=== PATIENT | female | born 1945 | race Caucasian/White ===

== ENCOUNTER → 2022-06-19 17:29 | Outpatient (CLI) | payer MEDICARE, MEDICAID, SELFPAY ==
[2022-06-19 18:55] LABS: COVID19 -Nasal RAPID Negative (Negative)
== END ==
PROVIDERS: Referring Provider Physician Assistant Surgical; Visit Provider Physician Assistant Surgical
DX: Z20.822 Contact with and (suspected) exposure to COVID-19 (principal)
CPT/HCPCS: 87635; C9803

== ENCOUNTER 2022-06-27 11:32 | Emergency (ER) | payer MEDICARE, MEDICAID, SELFPAY ==
[2022-06-27] VITALS (23 sets, daily range): BP systolic 120–182; BP diastolic 59–84; PULSE 76–96; RESP 16–18; TEMP 36.3–37.1; O2SAT 93–98; BMI 24.0
--- NOTE | 2022-06-27 11:34 | DI.RAD.S_ITS ---
PROCEDURE: XR ABDOMEN MIN 2V INDICATIONS: pain, vomiting, trouble with ostomy TECHNIQUE: 2 views of the abdomen were acquired. COMPARISON: None. FINDINGS: Surgical changes and devices: Right femoral fixation. Bowel: No pneumoperitoneum. The bowel gas pattern demonstrates scattered mildly dilated fluid-filled loops of small bowel. Soft tissues: No masses; visualized solid organ contours appear normal in size. No suspicious abdominal calcifications. Bones: No suspicious bony abnormalities. IMPRESSION: Mildly dilated fluid-filled loops of small bowel suggestive ileus versus developing early partial small bowel obstruction. Dictated by: Francia Stevens M.D. on 06/27/2022 at 12:39 Approved by: Francia Stevens M.D. on 06/27/2022 at 12:40
--- NOTE | 2022-06-27 12:30 | ED.ABDPAIN ---
HPI - Abdominal Pain General Chief Complaint: Abdominal Pain Stated Complaint: Back pain and vomiting Time Seen by Provider: 06/27/22 11:33 Source: patient and EMS Mode of arrival: EMS History of Present Illness HPI narrative: 77-year-old female with prior TIA, dementia, hard of hearing with prior cystostomy presents by EMS for evaluation of accidental removal of cystostomy and episodes of abdominal pain with radiation to the back and vomiting. The patient is a terrible historian and has very little to contribute but states she is currently not having any pain whether it be her abdomen or her back. She does not know who manages her cystostomy but there is report of a planned revision. Records obtained from outside facility. Patient had suffered a hip fracture in September and also was found to have acute cholecystitis but was thought to be too weak to undergo a secondary surgery at that time. She had cholecystostomy tube placement and 8 days of antibiotics. Outside note reports a recent CT abscessogram that was relatively limited. Related Data Allergies Allergy/AdvReac Type Severity Reaction Status Date / Time No Known Drug Allergies Allergy Verified 06/27/22 11:49 Review of Systems Review of Systems Narrative: GENERAL: Denies chills, fatigue, malaise, fever, sweats. HEENT: Denies sinus pain, ear pain, sore throat, difficulty swallowing, dizziness. RESPIRATORY: Denies dyspnea, cough, wheezing, hemoptysis, sputum. CARDIOVASCULAR: Denies chest pain, palpitations, orthopnea, edema, GASTROINTESTINAL: See HPI : Denies dysuria, frequency, incontinence, hematuria, urinary retention. MUSCULOSKELETAL: denies weakness, joint pain, or bony pain SKIN: Denies rash, skin lesions, or other NEUROLOGIC: Denies weakness, headache, numbness, change in speech, confusion, seizures, incoordination. PSYCHIATRIC: No concerning psychosocial issues. 12 point review of systems is negative except for those stated above Exam Narrative Exam Narrative: GENERAL: [77] year old patient appears stated age. Well-developed patient, in mild distress. Confused and demented, appears to be at her neurologic baseline HEAD: Atraumatic. Normocephalic. EYES: Pupils equal round and reactive. Extraocular motions intact. No scleral icterus. No injection or drainage. ENT: Nose without bleeding, purulent drainage. Throat without erythema, tonsillar hypertrophy or exudate. Airway patent. NECK: Trachea midline. Non tender CARDIOVASCULAR: Regular rate and rhythm without murmurs, gallops, or rubs. RESPIRATORY: Clear to auscultation. Breath sounds equal bilaterally. No wheezes, rales, or rhonchi. GASTROINTESTINAL: Abdomen soft, non-tender, nondistended. Cholecystostomy site with minimal surrounding erythema and perhaps a small amount of serous drainage EXTREMITIES: No edema or joint tenderness. BACK: Nontender without deformity or crepitance. No flank tenderness. NEURO: Cranial nerves 2-12 grossly intact SKIN: No rash or erythema of visible areas Initial Vital Signs Initial Vital Signs: Vital Signs Temperature 98.8 F 06/27/22 11:45 Pulse Rate 93 H 06/27/22 11:45 Respiratory Rate 18 06/27/22 11:45 Blood Pressure 156/72 H 06/27/22 11:45 Pulse Oximetry 98 06/27/22 11:45 Oxygen Delivery Method 06/27/22 11:45 Course Orders Ordered: Discontinued Medications Sodium Chloride (Normal Saline 0.9%) 500 mls @ 1,000 mls/hr IV BOLUS ONE Stop: 06/27/22 12:02 Last Infusion: 06/27/22 15:26 Dose: 0 mls/hr Documented By: Admin: 06/27/22 13:00 Dose: 1,000 mls/hr Documented By: ERASTO Ondansetron HCl (Ondansetron 4 Mg/2 Ml Inj) 4 mg IV NOW ONE Stop: 06/27/22 11:34 Last Admin: 06/27/22 12:57 Dose: 4 mg Documented By: ERASTO Reevaluation(s) Reevaluation #1: Patient reports no pain, nausea or vomiting for duration of visit Consultations Consultation #1: call to [facility] to consult general surgery. Discussed with dry wall installations mechanic surgeon, including history and physical exam, labs and imaging. She suggests patient would appropriately be discharged for follow-up as previously planned, also she consulted with the patient's surgeon of record Dr. Martins whom agrees Consultation #2: while awaiting call back from [facility] surgery I consulted with our local on-call surgeon Dr. Miller who states there is no indication for hospitalization or emergent surgical intervention given discussion of patient's history and physical exam, lack of symptoms, reassuring labs and no significant abnormal findings on imaging Consultation #3: Discussed with patient's daughter and POA, she is aware of diagnosis and plan Vital Signs Vital signs: Vital Signs - 8 hr 06/27/22 12:31 06/27/22 12:46 06/27/22 12:46 Temperature Pulse Rate 89 88 Respiratory Rate Blood Pressure 124/63 Pulse Oximetry 96 96 Oxygen Delivery Method 06/27/22 13:00 06/27/22 13:01 06/27/22 13:01 Temperature Pulse Rate 88 88 Respiratory Rate Blood Pressure 125/63 Pulse Oximetry 94 96 Oxygen Delivery Method 06/27/22 13:30 06/27/22 13:31 06/27/22 13:31 Temperature Pulse Rate 82 84 Respiratory Rate Blood Pressure 144/63 H Pulse Oximetry 95 94 Oxygen Delivery Method 06/27/22 14:00 06/27/22 14:01 06/27/22 14:01 Temperature Pulse Rate 77 77 Respiratory Rate Blood Pressure 125/59 L Pulse Oximetry 95 95 Oxygen Delivery Method 06/27/22 14:30 06/27/22 14:30 06/27/22 15:00 Temperature Pulse Rate 96 H 86 Respiratory Rate Blood Pressure 162/84 H Pulse Oximetry 96 97 Oxygen Delivery Method 06/27/22 15:01 06/27/22 15:01 06/27/22 15:37 Temperature Pulse Rate 85 Respiratory Rate Blood Pressure 133/69 142/68 H Pulse Oximetry 96 Oxygen Delivery Method 06/27/22 15:37 06/27/22 15:59 06/27/22 16:00 Temperature Pulse Rate 85 85 Respiratory Rate Blood Pressure 125/70 Pulse Oximetry 96 96 Oxygen Delivery Method 06/27/22 16:00 06/27/22 16:30 06/27/22 16:30 Temperature Pulse Rate 82 82 Respiratory Rate Blood Pressure 120/71 Pulse Oximetry 96 95 Oxygen Delivery Method 06/27/22 17:00 06/27/22 17:00 06/27/22 17:22 Temperature Pulse Rate 84 Respiratory Rate Blood Pressure 130/67 165/79 H Pulse Oximetry 95 Oxygen Delivery Method 06/27/22 17:22 06/27/22 17:30 06/27/22 17:31 Temperature Pulse Rate 85 81 79 Respiratory Rate Blood Pressure Pulse Oximetry 93 96 93 Oxygen Delivery Method 06/27/22 17:31 06/27/22 18:00 06/27/22 18:00 Temperature Pulse Rate 85 Respiratory Rate Blood Pressure 142/67 H 147/77 H Pulse Oximetry 93 Oxygen Delivery Method 06/27/22 18:30 06/27/22 19:11 Temperature 97.3 F L Pulse Rate 83 76 Respiratory Rate 16 Blood Pressure 182/82 H Pulse Oximetry 97 98 Oxygen Delivery Method Room Air MDM - Abdominal Pain Lab Data Result diagrams: 06/27/22 12:45 06/27/22 12:45 Labs: Lab Results 06/27/22 06/27/22 06/27/22 Range/Units 12:45 12:45 12:45 WBC 7.4 (4.5-11.0) X10^3/uL RBC 4.92 (4.0-5.2) X10^6/uL Hgb 14.4 (12.0-16.0) g/dL Hct 43.0 (36-46) % MCV 87.4 (80-100) fL MCH 29.3 (26-34) PG MCHC 33.5 (30-36) % RDW 14.3 (11.6-14.8) % Plt Count 249 (150-400) X10^3/uL Neut % (Auto) 77.8 H (50-75) % Lymph % (Auto) 16.5 L (25-40) % [place] % (Auto) 4.5 (3-14) % Eos % (Auto) 0.6 L (2-4) % Baso % (Auto) 0.6 (0-2) % Neut # (Auto) 5700 (5388-1395) /uL Lymph # (Auto) 1200 (9559-9147) /uL Gladwin # (Auto) 300 (0-900) /uL Eos # (Auto) 0 (0-450) /uL Baso # (Auto) 0 (0-100) /uL Sodium 141 (137-145) mmol/L Potassium 3.9 (3.4-5.1) mmol/L Chloride 101 (98-107) mmol/L Carbon Dioxide 31 (22-32) mmol/L BUN 14 (7-17) mg/dL Creatinine 0.67 (0.52-1.04) mg/dL Estimated GFR > 60 (>60) mL/min BUN/Creatinine Ratio 20.9 (6-22) Glucose 109 (80-110) mg/dL Lactate 1.2 (0.7-2.1) mmol/L Calcium 9.7 (8.4-10.2) mg/dL Magnesium 1.7 (1.6-2.3) mg/dL Total Bilirubin 0.6 (0.2-1.3) mg/dL AST 33 (14-36) IU/L ALT 30 (<35) IU/L Alkaline Phosphatase 117 (38-126) U/L Total Protein 8.1 (6.3-8.2) g/dL Albumin 4.2 (3.5-5.0) g/dL Globulin 3.9 (1.7-4.1) g/dL Albumin/Globulin Ratio 1.1 (1.0-2.8) Lipase 272 (23-300) U/L Imaging Data Abdominal x-ray: Radiologist's Impression: [address] [address] XRay Report Signed Patient: Janice Fair MR#: [id number] : 1945 Acct:[id number] Age/Sex: 77 / F Date of Service: 06/27/22 Loc: ED Accession Number: [id number] ?? Procedure: XR abdomen min 2V Ordering Provider: Rene Grossman D.O. PROCEDURE:? XR ABDOMEN MIN 2V ? INDICATIONS:? pain, vomiting, trouble with ostomy ? TECHNIQUE:? 2 views of the abdomen were acquired.? ? COMPARISON:? None. ? FINDINGS:? Surgical changes and devices:? Right femoral fixation. ? Bowel:? No pneumoperitoneum.? The bowel gas pattern demonstrates scattered mildly dilated fluid-filled loops of small bowel. ? Soft tissues:? No masses; visualized solid organ contours appear normal in size.? No suspicious abdominal calcifications.? ? Bones:? No suspicious bony abnormalities.? ? IMPRESSION:? Mildly dilated fluid-filled loops of small bowel suggestive ileus versus developing early partial small bowel obstruction.? ? ? Dictated by: Francia Stevens M.D. on 06/27/2022 at 12:39 ? ? Approved by: Francia Stevens M.D. on 06/27/2022 at 12:40 ? MDM Narrative Medical decision making narrative: [77-year-old female history of dementia and known multidrug resistant cholecystitis presents with a brief episode of abdominal pain] Multiple etiologies for patient's symptoms considered including, but not limited to: [Biliary disease, biliary abscess, bowel obstruction, pancreatitis versus other] Prior Charts reviewed: Including outside notes from [facility] noting hip surgery in January and subsequent cholecystostomy placement with planned laparoscopic cholecystectomy next week Labs reviewed and interpreted by myself: No signs of sepsis, reassuring labs including normal bilirubin and LFTs Imaging reviewed: Known cholecystitis redemonstrated, very small fluid collection noted but not significant for abscess, this was discussed with multiple surgeons Consultations: [facility] ([facility]) surgeons, please see Patient asymptomatic for duration Findings and discharge diagnosis discussed with patient/family followed by verbalization of understanding Return precautions discussed with patient/family whom verbalize understanding of diagnosis and plan Critical Care Time Critical Care Time Critical Care Time: Yes Total Critical Care Time: 30 Attestation: The high probability of a clinically significant, sudden or life threatening deterioration of the [GI, CV] system(s) required my full and direct attention, intervention and personal management. The aggregate critical care time was [30] minutes. This time is in addition to time spent performing reported procedures but includes the following: [x] Data Review and interpretation [x] Patient assessment and monitoring of vital signs [x] Documentation [x] Medication orders and management Discharge Plan Departure Patient Disposition: Home Clinical Impression: Abdominal pain Instructions: DI for Gallbladder or Biliary Tubes Activity Restrictions/Additional Instructions: *You have been diagnosed with [gallbladder disease] *What to do: *Please continue to take your regular medications as directed. [x] No new medications given *Please follow up with your general surgeon at [facility] as previously planned for expected surgery on July 04, call for an appointment. Let them know you were seen in the Emergency Department and that we ask that you be seen in follow up. We will electronically transmit a record of today's note if your PCP is in our system *Return to Emergency Department if you should have any new, worsening or concerning symptoms, such as [fever greater than 101 F, shaking chills, worsening pain, persistent vomiting or other bothersome symptoms] Referrals: Fiorella Martins MD [Non-Staff] - Stand Alone Forms: Patient Portal/API
[2022-06-27 12:55] LABS: Add Manual Diff / Slide Review NO; Basophils Absolute Auto 0 /uL (0-100); Basophils Percent Auto 0.6 % (0-2); Eosinophils Absolute Auto 0 /uL (0-450); Eosinophils Percent Auto 0.6 % (2-4); Hemoglobin 14.4 g/dL (12.0-16.0); Lymphocytes Absolute Auto 1200 /uL (1100-4500); Lymphocytes Percent Auto 16.5 % (25-40); Mean Corpuscular HGB Conc 33.5 % (30-36); Mean Corpuscular Hemoglobin 29.3 PG (26-34); Mean Corpuscular Volume 87.4 fL (80-100); Monocytes Absolute Auto 300 /uL (0-900); Monocytes Percent Auto 4.5 % (3-14); Neutrophils Absolute Auto 5700 /uL (1500-7000); Neutrophils Percent Auto 77.8 % (50-75); Platelet Count 249 X10^3/uL (150-400); Red Blood Cell Count 4.92 X10^6/uL (4.0-5.2); Red Cell Distribution Width 14.3 % (11.6-14.8); White Blood Cell Count 7.4 X10^3/uL (4.5-11.0)
[2022-06-27] MEDS: ONDANSETRON 4 MG/2 ML INJ IV (12:57)
[2022-06-27] MEDS: SODIUM CHLORIDE 0.9% 500 ML 1000 ML IV (13:00)
[2022-06-27 13:08] LABS: Alanine Aminotransferase 30 IU/L (<35); Albumin 4.2 g/dL (3.5-5.0); Albumin Globulin Ratio 1.1 (1.0-2.8); Alkaline Phosphatase 117 U/L (38-126); Aspartate Aminotransferase 33 IU/L (14-36); BUN Creatinine Ratio 20.9 (6-22); Bilirubin Total 0.6 mg/dL (0.2-1.3); Blood Urea Nitrogen 14 mg/dL (7-17); Calcium 9.7 mg/dL (8.4-10.2); Carbon Dioxide 31 mmol/L (22-32); Chloride 101 mmol/L (98-107); Estimated Glomerular Filt Rate > 60 mL/min (>60); Globulin 3.9 g/dL (1.7-4.1); Glucose 109 mg/dL (80-110); HEMOLYSIS < 15 (0-50); Lipase 272 U/L (23-300); Magnesium 1.7 mg/dL (1.6-2.3); Potassium 3.9 mmol/L (3.4-5.1); Sodium 141 mmol/L (137-145); Total Protein 8.1 g/dL (6.3-8.2)
[2022-06-27 13:09] LABS: Lactate (Lactic Acid) 1.2 mmol/L (0.7-2.1)
--- NOTE | 2022-06-27 14:49 | DI.CT.S_ITS ---
PROCEDURE: CT ABDOMEN PELVIS W CON INDICATIONS: abdominal pain, pulled choley drain, vomiting TECHNIQUE: After the administration of oral and IV contrast, axial sections were acquired from the lung bases to the pubic symphysis. Coronal and sagittal reformats were performed. For radiation dose reduction, the following was used: automated exposure control, adjustment of mA and/or kV according to patient size. COMPARISON: None. FINDINGS: Image quality: Right femoral fixation. Lung bases: Unremarkable. Heart: No significant findings. ABDOMEN: Liver: Mild hepatic steatosis. Gallbladder: Gallbladder demonstrates an appearance of wall thickening. No definitive stone is identified. Small focus of fluid attenuation measuring 9 mm anterior to the gallbladder. It is noted from clinical history there has been a recent cholecystostomy tube. Biliary ducts: Unremarkable. Pancreas: Unremarkable. Spleen: Unremarkable. Adrenal Glands: Unremarkable. Kidneys and Ureters: Unremarkable. Stomach and Bowel: Stomach, small bowel loops, and colon are unremarkable. Peritoneum: No abnormal intraperitoneal fluid. No free air. Ventral Wall: No hernia. Abdominal Nodes: No retroperitoneal or mesenteric adenopathy by size criteria. Vessels: Aorta and inferior vena cava are normal in size. PELVIS: Pelvic Organs: Unremarkable. Bladder: Unremarkable. Pelvic Nodes: No enlarged lymph nodes. Miscellaneous: No inguinal hernias are seen. Bones: Unremarkable. IMPRESSION: Thickening of the gallbladder wall without visualized stone. A calculus slowly cystitis cannot be excluded. There is a focus of fluid attenuation appearing to be external to the lumen along the anterior aspect as described above. This could represent cholecystic fluid secondary to given history of recent cholecystostomy drain. Otherwise, developing abscess cannot be excluded. Dictated by: Francia Stevens M.D. on 06/27/2022 at 16:11 Approved by: Francia Stevens M.D. on 06/27/2022 at 16:14
== END 2022-06-27 22:10 | disposition home or self-care (01) ==
PROVIDERS: Emergency Provider Emergency Medicine
DX: R10.9 Unspecified abdominal pain (principal); R11.2 Nausea with vomiting, unspecified
CPT/HCPCS: 36415; 74019; 74177; 80053; 83605; 83690; 83735; 85025; 96361; 96374; 99284; J2405; Q9967